=== PATIENT | male | born 1955 | race Caucasian/White ===

== ENCOUNTER 2018-06-13 07:51 | Emergency (ER) | payer BC ==
[2018-06-13 08:17] VITALS: BP 144/77
--- NOTE | 2018-06-13 08:29 | UC ---
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 and NO recent injury of note - History of Current Complaint Chief Complaint: UCLowerExtremity Stated Complaint: LEFT FOOT PAIN Time Seen by Provider: 06/13/18 08:18 Hx Obtained From: Patient, Family/Broadcast Chief Engineer Onset/Duration: Lasting Days Severity Initially: Moderate Severity Currently: Severe Pain Intensity: 9 - Allergies/Home Medications Allergies/Adverse Reactions: Allergies Allergy/AdvReac Type Severity Reaction Status Date / Time No Known Allergies Allergy Verified 06/13/18 08:18 Home Medications: Home Medications Atorvastatin Calcium [Lipitor] 40 mg PO DAILY 06/13/18 [History Confirmed ] Darifenacin (NF) [Enablex (NF)] 15 mg PO DAILY 06/13/18 [History Confirmed 06/13] Mirabegron [Myrbetriq] 25 mg PO DAILY 06/13/18 [History Confirmed 06/13/18] Omeprazole 20 mg PO DAILY 06/13/18 [History Confirmed 06/13/18] Ticagrelor* [Brilinta*] 90 mg PO BID 06/13/18 [History Confirmed 06/13/18] PMH/Surg Hx/FS Hx/Imm Hx - Surgical History Surgical History: Yes Surgery Procedure, Year, and Place: Appy 2004, left eye socket and zygomatic fxs with metal plates 1996. amp left great toe due to crushing injury, heart surgery, 2019 - Family History Known Family History: Positive: None, Unknown Negative: Hypertension, Diabetes - Social History Alcohol Use: Occasionally Substance Use Type: None Smoking Status (MU): Former Smoker Type: Smokeless Tobacco Review of Systems All Other Systems Reviewed And Are Negative: Yes - Comments Additional Review of Systems Comments: Constitutional: Negative Eyes: Negative ENT: Negative Cardiovascular: Negative Respiratory: Negative Gastrointestinal: Negative Genitourinary: Negative Musculoskeletal: left 4th toe pain Skin: Negative Neurological: Negative Psychological: Normal Physical Exam - Summary Physical Exam Summary: Appearance: Positive: No Pain Distress Skin: Positive: Warm Head/Face: Positive: Normal Head/Face Inspection Eyes: Positive: Normal ENT: Positive: Normal ENT inspection Neck: Positive: Supple Respiratory/Lung Sounds: Positive: Clear to Auscultation. Negative: Rales, Rhonchi, Wheezes Cardiovascular: Positive: Normal, RRR, S1, S2 Abdomen Description: Positive: Nontender, Soft Musculoskeletal: Positive: left 4th toe moderate to severe TTP, mild erythema, ROM intact, no open wounds Vital Signs: Initial Vital Signs Temp 36.8 C 06/13/18 08:08 Pulse 62 06/13/18 08:08 Resp 16 06/13/18 08:08 BP 144/77 06/13/18 08:08 Pulse Ox 97 06/13/18 08:08 Lower Extremity Course/Dx - Course Course Of Treatment: left 4th toe pain- ddx include acute gouty flare- check uric acid levels today, start indomethacin 50 TID, if pain still persist f/u with PCP, limit red meat and beer but pt states he probably will not be able to - Differential Dx/Diagnosis Provider Diagnosis: Gout attack Discharge - Sign-Out/Discharge Documenting (check all that apply): Patient Departure All imaging exams completed and their final reports reviewed: Yes - Discharge Plan Condition: Stable Disposition: HOME Referrals: Reina Knutson MD [Primary Care Provider] - - Billing Disposition and Condition Condition: STABLE Disposition: Home
== END 2018-06-13 08:58 | disposition home or self-care (01) ==
LOC: UCCORT 07:51
DX: M10.9 Gout, unspecified (principal); Z87.891 Personal history of nicotine dependence
CPT/HCPCS: 36415; 84550; 99212; G0463

== ENCOUNTER 2018-08-01 10:44 | Emergency (ER) | payer BC ==
[2018-08-01 11:00] VITALS: BP 131/76
--- NOTE | 2018-08-01 11:14 | UC ---
Knee Pain HPI - HPI Summary HPI Summary: Per brick dropper: "Right knee swelling x2 weeks. Hurts to bend. Burning sensation behind the knee occasionally. Denies any known trauma. " -here w/ his . doesnt come to the drs unless he has signifccant issues. On brillinta for CVA, failed plavix. had surgical repair of a "hole in my heart". very active. his reports that he does a lot of "stupid things" like jumping down from the tuck. no giving out. feels like he has to unlock it in the monrings at times. not warm or red. no CP/SOB. no personal or FHx DVT - History of Current Complaint Chief Complaint: UCLowerExtremity Stated Complaint: RT KNEE COMPLAINT Time Seen by Provider: 08/01/18 11:06 Pain Intensity: 8 - Allergies/Home Medications Allergies/Adverse Reactions: Allergies Allergy/AdvReac Type Severity Reaction Status Date / Time No Known Allergies Allergy Verified 08/01/18 10:55 PMH/Surg Hx/FS Hx/Imm Hx Previously Healthy: Yes Cardiovascular History: Other - s/p surgical repair of "hole in heart" - Surgical History Surgical History: Yes Surgery Procedure, Year, and Place: Appy 2004, left eye socket and zygomatic fxs with metal plates 1996. T&A. amp left great toe due to crushing injury, heart surgery, 2018 - Family History Known Family History: Positive: None, Unknown, Other - no blood clots Negative: Hypertension, Diabetes - Social History Alcohol Use: Daily Alcohol Amount: 3 beers/day Substance Use Type: None Smoking Status (MU): Former Smoker Type: eCigarettes Review of Systems All Other Systems Reviewed And Are Negative: Yes Constitutional: Positive: Negative Skin: Positive: Negative Eyes: Positive: Negative ENT: Positive: Negative Respiratory: Positive: Negative Cardiovascular: Positive: Negative Gastrointestinal: Positive: Negative Motor: Positive: Decreased ROM Neurovascular: Positive: Negative Musculoskeletal: Positive: Decreased ROM Neurological: Positive: Negative Psychological: Positive: Negative Is Patient Immunocompromised?: No Physical Exam Triage Information Reviewed: Yes Appearance: Well-Appearing, No Pain Distress, Well-Nourished - very pleasant, signfiiccant amt of history is further detailed by his . Vital Signs: Initial Vital Signs Temp 98.4 F 08/01/18 10:56 Pulse 64 08/01/18 10:56 Resp 15 08/01/18 10:56 BP 131/76 08/01/18 10:56 Pulse Ox 96 08/01/18 10:56 Vital Signs Reviewed: Yes Eye Exam: Normal Respiratory Exam: Normal Respiratory: Positive: Lungs clear, Normal breath sounds, No respiratory distress Cardiovascular Exam: Normal Cardiovascular: Positive: RRR Abdominal Exam: Normal Musculoskeletal: Positive: Other: - right knee w/ geenarlized anterior swelling compared to left. there is right lateral anterior abrasion (from working/ kneeling on cement). no v/v laxity. neg A/P drawer. neg lachmans. strength intact. cool to touch. not tender or significantly swollen or red posterior knee. CR brisk. sensation intact Neurological Exam: Normal Psychological Exam: Normal Skin Exam: Normal Knee Pain Course/Dx - Course Course Of Treatment: right knee xray - neg. -he has seen Dr vásquez, ortho, for several other issues and would like to f/u with him. - Differential Dx/Diagnosis Differential Diagnosis/HQI/PQRI: Fracture (Closed), Sprain, Strain, Tendonitis Provider Diagnosis: Right knee pain Discharge - Sign-Out/Discharge Documenting (check all that apply): Patient Departure All imaging exams completed and their final reports reviewed: Yes - Discharge Plan Condition: Stable Disposition: HOME Patient Education Materials: Knee Pain (ED) Referrals: Reina Knutson MD [Primary Care Provider] - Additional Instructions: Do not take anyd NSAIDs (aleve, ibuprofen, advil etc) for pain. only tylenol b/ c increased bleeding risk with brillinta. Please call Dr Vásquez this week for follow up. If the back of your leg becomes swollen, red or worsening pain, please go to the ER. - Billing Disposition and Condition Condition: STABLE Disposition: Home
== END 2018-08-01 11:53 | disposition home or self-care (01) ==
LOC: UCCORT 10:44
DX: M25.561 Pain in right knee (principal); Z89.412 Acquired absence of left great toe; Z87.891 Personal history of nicotine dependence
CPT/HCPCS: 99211; G0463

== ENCOUNTER 2018-09-26 08:55 | Emergency (ER) | payer BC ==
--- OUTSIDE RECORDS SUMMARY | 2018-09-26 09:03 | XMS REPORT | Continuity of Care Document ---
:1955 External Reference #:[id number] Author Name Reina Knutson MD Address [address] [facility] [place] [address] Care Team Providers Name Role Phone Reina Knutson MD Care Team Information Grant Officer Unavailable Payers Date Identification Numbers Payment Provider Subscriber Effective: 2011 Policy Number: [id number] [facility] West[facility] PayID: [id number] [address] [address] [place] [address] Onset: 2005 [facility] Vasu Weston [address] [address] [place] [address] Problems Active Problems Provider Date Pityriasis versicolor Reina Knutson MD Onset: 01/17/2012 Vitamin D deficiency Reina Knutson MD Onset: 01/17/2012 Bladder muscle dysfunction - overactive Reina Knutson MD Onset: 2010 Impotence of organic origin Reina Knutson MD Onset: 03/23/2010 Benign neoplasm of colon Reina Knutson MD Onset: 09/01/2009 Family history of malignant neoplasm of Reina Knutson MD Onset: 2009 gastrointestinal tract Tobacco user Reina Knutson MD Onset: 03/13/2009 Mixed hyperlipidemia Reina Knutson MD Onset: 03/13/2009 Malignant tumor of prostate Reina Knutson MD Onset: 04/14/2015 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 Cerebrovascular disease Reina Knutson MD Onset: 06/18/2016 Late effects of cerebrovascular disease Reina Knutson MD Onset: 2016 Blurring of visual image Onset: 07/22/2016 Tobacco dependence syndrome Onset: 06/13/2016 Hyperlipidemia Onset: 06/13/2016 Aneurysm of internal carotid artery Onset: 06/13/2016 History of malignant neoplasm of prostate Onset: 06/13/2016 Ischemic stroke Onset: 06/12/2016 History of cerebrovascular accident without Reina Knutson MD Onset: 02/11 residual deficits Aneurysm of other specified arteries Reina Knutson MD Onset: 02/11/2018 Alcohol dependence with other alcohol-induced Reina Knutson MD Onset: disorder Atrioventricular septal defect Reina Knutson MD Onset: 02/11/2018 Coronary atherosclerosis Reina Knutson MD Onset: 09/07/2018 Family History Date Family Member(s) Observation Comments Father due to Cancer () Onset: (age 60 Years) Father Cancer, Colon Onset: (age 70 Years) Mother Stroke Mother Carotid Artery Disease stents Mother Hypertension Mother Hypercholesterolemia First Son No Current Problems Second Son No Current Problems First Daughter No Current Problems First Brother Hypertension First Brother Hypercholesterolemia First Brother Colon Polyps First Sister No Current Problems Second Sister No Current Problems Social History Type Date Description Comments Sex Unknown Marital Status Lives With Spouse Occupation Currently Working working, construction, [employer] , does pipe lines Smokeless Tobacco Current Smokeless or more times per day, Tobacco User, Uses 10 vaping Times Daily ETOH Use Currently consumes 3 -4 beers 3-4 days alcohol per week Recreational Drug Use Denies Drug Use Tobacco Use Start: Unknown Patient is a former quit 06/12/16 , 1 ppd, End: smoker started in the teens Document: 07/19/16 - Followup: CPX Male 07/19/16 eligible, declines screening [facility] [place], willing to do screening LM Tobacco Use Start: Unknown Patient vapes Tobacco Use Start: Unknown Patient is a current as vaping mult times smoker, smokes every per day day Smoking Status Reviewed: 09/07/18 Patient is a former quit 06/12/16 , 1 ppd, smoker started in the teens Document: 07/19/16 - Followup: CPX Male 07/19/16 eligible, declines screening [facility] [place] willing to do screening LM Exercise Type/Frequency Exercises regularly walking, yard chores snow blow, shovel, mow lawn; 04/11/14 counselled 150min per week 10k steps per day Allergies, Adverse Reactions, Alerts Description No Known Drug Allergies Medications Active Medications SIG Qnty Indications Ordering Date Provider Ketoconazole apply shampoo to 120ml B36.0 Zenia, 09/07/2018 2% Shampoo all of body rash, MD Reina leave on for 5 min and then rinse off. repeat treatment in 1 week. Vitamin D 2 tabs by mouth E55.9 Zenia, 03/23/2018 (Cholecalciferol) every day with a MD Reina meal with meat 1000Unit Tablets /fat Atorvastatin Calcium take one tablet by 30tabs E78.2 Zenia, 2016 mouth every day MD Reina 40mg Tablets I63.30 Brilinta 1 by mouth twice a day by Z79.01 Unknown 05/20/[address] Cheema I67.9 Z86.73 Cialis 1/2 -1 q36h as N52.9 Tanner Avila 06/19/2015 20mg Tablets needed anticipated sexual activity Myrbetriq 1 by mouth every day N32.81 Unknown 25mg Tablets ER 24HR Omeprazole 1 by mouth every day 30caps I63.30 Reina Knutson MD 20mg 30min before a meal Capsules Z86.73 R12 Darifenacin Hydrobromide ER Take 15 mg by mouth N32.81 Evert Ozuna 15mg Tablets daily ER 24HR C61 Aspirin Adult Low 1 by mouth daily with E78.2 Reina Knutson MD Strength food 81mg Tablets I63.30 History Medications Fluoxetine HCL 1 by mouth 30caps I63.30 Reina Knutson, 01/24/2017 - (PMDD) every day 03/18/2017 20mg Capsules Nicoderm CQ on in morning, 28units J44.9 Reina Knutson, 07/19/2016 - off at night, 08/16/2016 7mg/24HR Patches don't smoke 24HR with this patch on F17.211 Fluoxetine HCL 1 by mouth 30caps I63.30 Reina Knutson, 06/13/2016 - (PMDD) every day 07/22/2016 20mg Capsules Aspirin Low Dose Take 1 tablet 30tabs Z79.01 Unknown 06/13/2016 - by mouth daily 07/24/2016 81mg Tablets I63.30 Nicoderm CQ apply every day 28units J44.9 Reina Knutson, 06/12/2016 - on arising, 07/19/2016 14mg/24HR Patches remove at night, 24HR no smoking with patch on F17.211 Chantix 1 by mouth 60tabs F17.210 Reina Knutson, 05/12/2015 - 1mg Tablets twice a day 06/18/2016 Chantix Starting as directed, 1tabs F17.210 Reina Knutson, 04/14/2015 - Month Scott call with 05/12/2015 0.5mg X 11 update 1 week & 1 mg X 42 Tablets before running out, start now and quit in 1 week Atorvastatin Calcium 1 by mouth 30tabs E78.2 Reina Knutson, 04/14/2015 - every day 06/18/2016 10mg Tablets Cephalexin 1 by mouth 14tabs L03.116 Reina Knutson, 02/20/2015 - 500mg twice a day 02/27/2015 Tablets Viagra take 1 tablet 10tabs N52.9 Tanner Avila 11/17/2013 - 100mg Tablets by mouth if 06/18/2016 needed Aspirin Adult Low 1 by mouth E78.2 Reina Knutson, 02/28/2012 - Strength daily with food 07/23/2016 81mg Tablets I63.30 Vitamin D 1 po daily E55.9 Reina Knutson, 03/27/2010 - (Cholecalciferol) with evening 08/10/2017 1000Unit meal Tablets Enablex 1 PO qd 30tabs 788.30 Tanner Savage, 04/18/2006 - 7.5mg Tablets ER 24HR 02/20/2015 596.51 Darifenacin Hydrobromide 1 by mouth every day Unknown - 07/23 ER 15mg Tablets ER 24HR Adcirca Take 20 mg by mouth Unknown - 12/15/2016 20mg Tablets daily as needed for Erectile Dysfunction Omeprazole Magnesium Take 20 mg by mouth Unknown - 12/15/2016 20.6(20Base) daily mg Capsules DR Lugo Transdermal Place 1 patch onto the Unknown - 2016 System Step 2 skin every 24 14mg/24HR Patches (twenty-four) hours 24HR Immunizations CPT Code Status Date Vaccine Reaction Lot # 11176 Given 07/26/2017 Tdap (Adacel) Ages 7 And Above GIVEN AT PHARMACY Only 77115 Given 02/20/2015 Tetanus And Diptheria Toxoids [id number] For Adult Use-preservative free 62300 Given 01/17/2012 Pneumococcal 23 Immunization Adult Or Immunosuppressed Patient 41034 Given 04/01/2005 Tdap (Adacel) Ages 7 And Above Only [id number] Refused 02/11/2018 Flu Vaccine NOS 79040 Refused 02/11/2018 Shingrix (Shingles) Zoster Vaccine HZV, Recombinant , Subunit, Adj 33583 Refused 03/18/2017 Influenza Virus Vaccine,Quadrivalent,Split,Preserv Free, 0.5mL,Im [address] Refused 04/14/2015 Influenza Virus Vaccine,Quadrivalent,Split,Preserv Free, 0.5mL,Im [address] Refused 02/20/2015 Influenza Virus Vaccine,Quadrivalent,Split,Preserv Free, 0.5mL,[place] [address] Refused 04/11/2014 Zoster (Zostavax) 68900 Refused 04/11/2014 Influenza Virus Vaccine,Quadrivalent,Split,Preserv Free, 0.5mL,Im [address] Refused 04/11/2014 Prevnar 13 Pneumococal Conjugate Vaccine Vital Signs Date Vital Result Comment 09/07/2018 1:26pm Weight 146.00 lb Heart Rate 76 /min BP Systolic 128 mmHg BP Diastolic 64 mmHg Respiratory Rate 14 /min Height 67 inches 5'7" BMI (Body Mass Index) 22.9 kg/m2 02/11/2018 8:35am Weight 158.00 lb With Boots Heart Rate 62 /min BP Systolic 130 mmHg BP Diastolic 80 mmHg Respiratory Rate 16 /min Height 67 inches 5'7" O2 % BldC Oximetry 94 % Ra BMI (Body Mass Index) 24.7 kg/m2 08/11/2017 3:44pm Body Temperature 98.1 F Weight 155.00 lb Heart Rate 69 /min BP Systolic 138 mmHg BP Diastolic 74 mmHg Respiratory Rate 16 /min Height 67 inches 5'7" O2 % BldC Oximetry 95 % ra BMI (Body Mass Index) 24.3 kg/m2 03/18/2017 8:48am Weight 150.00 lb Heart Rate 68 /min BP Systolic 138 mmHg BP Diastolic 80 mmHg Respiratory Rate 18 /min Height 67.5 inches 5'7.50" 03/18/17 BMI (Body Mass Index) 23.1 kg/m2 12/16/2016 2:36pm Weight 140.00 lb Heart Rate 78 /min BP Systolic 140 mmHg BP Diastolic 82 mmHg Respiratory Rate 16 /min Height 67.5 inches 5'7.50" 07/03 BMI (Body Mass Index) 21.6 kg/m2 07/24/2016 11:43am Body Temperature 97.6 F Weight 146.12 lb Heart Rate 57 /min BP Systolic 128 mmHg BP Diastolic 78 mmHg Respiratory Rate 16 /min Height 67.5 inches 5'7.50" 07/03 O2 % BldC Oximetry 96 % Room air BMI (Body Mass Index) 22.5 kg/m2 07/23/2016 3:55pm Body Temperature 98.1 F Heart Rate 69 /min BP Systolic 112 mmHg BP Diastolic 78 mmHg Respiratory Rate 17 /min 07/22/2016 11:30am Height 67.01 inches 5'7.01" 07/22/2016 12:40pm BMI (Body Mass Index) 22.82 kg/m2 07/19/2016 2:12pm Weight 149.00 lb Heart Rate 74 /min BP Systolic Sitting 134 mmHg BP Diastolic Sitting 78 mmHg Respiratory Rate 16 /min Height 67.5 inches 5'7.50" 07/03 BMI (Body Mass Index) 23.0 kg/m2 06/18/2016 3:14pm Weight 144.06 lb Heart Rate 68 /min BP Systolic 130 mmHg BP Diastolic 82 mmHg Respiratory Rate 18 /min Height 67.5 inches 5'7.50" 07/03 BMI (Body Mass Index) 22.2 kg/m2 05/12/2015 10:28am Weight 151.00 lb Heart Rate 80 /min BP Systolic 128 mmHg LEFT Reg BP Diastolic 88 mmHg LEFT Reg Respiratory Rate 18 /min Height 67 inches 5'7" 05/02 BMI (Body Mass Index) 23.6 kg/m2 04/14/2015 9:31am Weight 142.00 lb Heart Rate 72 /min BP Systolic 120 mmHg BP Diastolic 80 mmHg Respiratory Rate 18 /min Height 67 inches 5'7" BMI (Body Mass Index) 22.2 kg/m2 02/20/2015 2:30pm Weight 140.00 lb Heart Rate 74 /min BP Systolic 130 mmHg BP Diastolic 80 mmHg Respiratory Rate 18 /min Height 67 inches 5'7" BMI (Body Mass Index) 21.9 kg/m2 04/11/2014 9:12am Weight 144.00 lb Heart Rate 74 /min BP Systolic 122 mmHg BP Diastolic 80 mmHg Respiratory Rate 18 /min Height 67 inches 5'7" BMI (Body Mass Index) 22.6 kg/m2 02/28/2012 8:53am Weight 145.00 lb Heart Rate 76 /min BP Systolic 120 mmHg BP Diastolic 70 mmHg Respiratory Rate 16 /min Height 66.75 inches 5'6.75" 01/17/2012 1:22pm Weight 144.00 lb Heart Rate 72 /min BP Systolic 134 mmHg BP Diastolic 78 mmHg Respiratory Rate 18 /min Height 67.25 inches 5'7.25" 01/17/12 03/23/2010 1:24pm Weight 146.00 lb Heart Rate 92 /min BP Systolic 110 mmHg R/LG BP Diastolic 60 mmHg R/LG Respiratory Rate 17 /min Height 68.5 inches 5'8.50" 09/01/2009 3:38pm BP Systolic 120 mmHg RIGHT BP Diastolic 70 mmHg RIGHT 09/01/2009 3:38pm Body Temperature 72.0 F Weight 138.00 lb BP Systolic 118 mmHg LEFT BP Diastolic 68 mmHg LEFT 03/13/2009 9:22am BP Systolic 140 mmHg BP Diastolic 80 mmHg 03/13/2009 9:22am Weight 145.00 lb Heart Rate 72 /min BP Systolic 140 mmHg BP Diastolic 80 mmHg Respiratory Rate 15 /min 04/18/2006 4:34pm Weight 146.00 lb Heart Rate 68 /min BP Systolic 130 mmHg BP Diastolic 80 mmHg Respiratory Rate 20 /min Height 68 inches 5'8" 08/21/2005 3:22pm Weight 138.38 lb Heart Rate 68 /min BP Systolic 120 mmHg BP Diastolic 82 mmHg Respiratory Rate 16 /min Height 68 inches 5'8" 08/08/2005 11:28am Heart Rate 72 /min BP Systolic 118 mmHg BP Diastolic 80 mmHg Respiratory Rate 18 /min Height 68 inches 5'8" 04/01/2005 8:06am Weight 145.00 lb Heart Rate 74 /min BP Systolic 142 mmHg BP Diastolic 84 mmHg Respiratory Rate 16 /min Height 68 inches 5'8" 03/01/2005 1:04pm Weight 141.00 lb Heart Rate 78 /min BP Systolic 134 mmHg BP Diastolic 80 mmHg Respiratory Rate 16 /min Results Test Date Facility Test Result H/L Range Note Lipid Panel-[facility]cmg 09/05/2018 [facility] Cholesterol 133 mg /dL <200 1, 2 (315)- - Triglycerides 55 mg/dL <150 3 HDL Cholesterol 72 mg/dL >40 4 LDL-Cholesterol 50 mg/dL < 100 5 Laboratory test finding 09/05/2018 [facility] CK 110 U/L N 39-308 (315)- - Comprehensive Metabolic 09/05/2018 [facility] Glucose 90 mg/dL N 74-106 Panel (315)- - BUN 9 mg/dL N 7-18 Creatinine 0.9 mg/dL N 0.6-1.3 Glom Filtration Rate, Estimate >60 mL/min >60 If >60 mL/min >60 6 BUN/Creat 10.0 ratio Sodium 141 mmol/L N 136-145 Potassium 4.2 mmol/L N 3.5-5.1 Chloride 107 mmol/L N 98-107 Carbon Dioxide 28 mmol/L N 21-32 Anion Gap 6 mEq/L Low 8-16 Calcium 9.0 mg/dL N 8.5-10.1 Total Protein 7.8 g/dL N 6.4-8.2 Albumin 3.9 g/dL N 3.4-5.0 Globulin 3.9 g/dL N 1.9-4.3 Alb/Glob 1.0 ratio Bilirubin,Total 0.6 mg/dL N 0.2-1.0 Sgot/Ast 18 U/L N 15-37 SGPT/Alt 21 U/L N 12-78 Alkaline Phosphatase 83 U/L N 45-117 CBS W/Automated Diff 09/05/2018 [facility] White Blood 3.9 K/uL N 3.4-10.5 (315)- - Count Red Blood Count 4.40 M/uL N 4.20-5.80 Hemoglobin 14.2 gm/dL N 12.8-17.0 Hematocrit 41.3 % N 38.0-48.0 Mean Cell Volume 93.9 fl N 80.0-96.0 Mean Corpuscular HGB 32.3 pg N 27.0-33.0 Mean Corpuscular HGB Conc 34.4 g/dL N 31.7-36.0 Platelet Count 287 K/uL N 155-360 Red Cell Distri Width SD 44.1 fl N 36-51 Red Cell Distri Width %CV 12.8 % N 11.6-15.8 Mean Platelet Volume 9.3 fl N 6.6-10.6 Neut% 57.9 % N 33.0-73.0 Lymph % 28.7 % N 20.0-42.0 Hays % 9.5 % N 0.0-10.0 Eo% 3.1 % N 0.0-6.6 Bas% 0.8 % N 0.0-1.1 Immature Grans 0.0 % N 0.0-5.0 NRBC % 0.0 /100WBC < 10/ 100 WBC Neut# 2.26 K/uL N 1.8-7.0 Lymph # 1.12 K/uL N 1.0-4.0 Hays # 0.37 K/uL N 0.0-0.8 Eos # 0.12 K/uL N 0.0-0.5 Baso # 0.03 K/uL N 0.0-0.1 Immature Grans Absolute 0.00 K/uL NRBC # 0.00 K/uL Laboratory test 09/05/2018 [facility] Vitamin <pending> finding (315)- - D,25-Hydroxy CBS W/Automated 01/31/2018 [facility] White Blood Count 4.7 K/uL N 3.4-10 7 Diff (315)- - .5 Red Blood Count 4.61 M/uL N 4.20-5.80 Hemoglobin 14.6 gm/dL N 12.8-17.0 Hematocrit 42.6 % N 38.0-48.0 Mean Cell Volume 92.4 fl N 80.0-96.0 Mean Corpuscular HGB 31.7 pg N 27.0-33.0 Mean Corpuscular HGB Conc 34.3 g/dL N 31.7-36.0 Platelet Count 272 K/uL N 155-360 Red Cell Distri Width SD 41.3 fl N 36-51 Red Cell Distri Width %CV 12.6 % N 11.6-15.8 Mean Platelet Volume 9.9 fL N 6.6-10.6 Neut% 54.8 % N 33.0-73.0 Lymph % 31.9 % N 20.0-42.0 Hays % 8.9 % N 0.0-10.0 Eo% 4.0 % N 0.0-6.6 Bas% 0.4 % N 0.0-1.1 Neut# 2.59 K/uL N 1.8-7.0 Lymph # 1.51 K/uL N 1.0-4.0 Hays # 0.42 K/uL N 0.0-0.8 Eos # 0.19 K/uL N 0.0-0.5 Baso # 0.02 K/uL N 0.0-0.1 Comprehensive Metabolic 01/31/2018 [facility] Glucose 83 mg/dL N 74-106 Panel (315)- - BUN 10 mg/dL N 7-18 Creatinine 0.9 mg/dL N 0.6-1.3 Glom Filtration Rate, Estimate >60 mL/min >60 If >60 mL/min >60 8 BUN/Creat 11.1 ratio Sodium 141 mmol/L N 136-145 Potassium 4.0 mmol/L N 3.5-5.1 Chloride 106 mmol/L N 98-107 Carbon Dioxide 29 mmol/L N 21-32 Anion Gap 6 mEq/L Low 8-16 Calcium 8.6 mg/dL N 8.5-10.1 Total Protein 7.5 g/dL N 6.4-8.2 Albumin 3.9 g/dL N 3.4-5.0 Globulin 3.6 g/dL N 1.9-4.3 Alb/Glob 1.1 ratio Bilirubin,Total 0.5 mg/dL N 0.2-1.0 Sgot/Ast 24 U/L N 15-37 SGPT/Alt 33 U/L N 12-78 Alkaline Phosphatase 72 U/L N 45-117 Laboratory test 01/31/2018 [facility] CK 69 U/L N 39- 308 finding (315)- [facility] Cholesterol 145 mg /dL <200 9 (315)- - Triglycerides 63 mg/dL <150 10 HDL Cholesterol 56 mg/dL >40 11 LDL-Cholesterol 76 mg/dL < 100 12 [facility] Glucose 105 mg/dL N 74-106 13 (315)- - BUN 10 mg/dL N 7-18 Creatinine 0.8 mg/dL N 0.6-1.3 Glom Filtration Rate, Estimate >60 mL/min >60 If >60 mL/min >60 14 BUN/Creat 12.5 ratio Sodium 143 mmol/L N 136-145 Potassium 3.8 mmol/L N 3.5-5.1 Chloride 111 mmol/L High 98-107 Carbon Dioxide 23 mmol/L N 21-32 Anion Gap 9 mEq/L N 8-16 Calcium 8.5 mg/dL N 8.5-10.1 Total Protein 7.2 g/dL N 6.4-8.2 Albumin 3.9 g/dL N 3.4-5.0 Globulin 3.3 g/dL N 1.9-4.3 Alb/Glob 1.2 ratio Bilirubin,Total 0.5 mg/dL N 0.2-1.0 Sgot/Ast 23 U/L N 15-37 SGPT/Alt 32 U/L N 12-78 Alkaline Phosphatase 74 U/L N 45-117 CBC With Auto 08/02/2017 [facility] White Blood 4.8 K/uL N 3.4-10.5 Diff (315)- - Count Red Blood Count 4.58 M/uL N 4.20-5.80 Hemoglobin 14.6 gm/dL N 12.8-17.0 Hematocrit 42.1 % N 38.0-48.0 Mean Cell Volume 91.9 fl N 80.0-96.0 Mean Corpuscular HGB 31.9 pg N 27.0-33.0 Mean Corpuscular HGB Conc 34.7 g/dL N 31.7-36.0 Platelet Count 275 K/uL N 155-360 Red Cell Distri Width SD 42.6 fl N 36-51 Red Cell Distri Width %CV 13.0 % N 11.6-15.8 Mean Platelet Volume 9.5 fL N 6.6-10.6 Neut% 61.5 % N 33.0-73.0 Lymph % 25.7 % N 20.0-42.0 Hays % 9.3 % N 0.0-10.0 Eo% 3.1 % N 0.0-6.6 Bas% 0.4 % N 0.0-1.1 Neut# 2.97 K/uL N 1.8-7.0 Lymph # 1.24 K/uL N 1.0-4.0 Hays # 0.45 K/uL N 0.0-0.8 Eos # 0.15 K/uL N 0.0-0.5 Baso # 0.02 K/uL N 0.0-0.1 Lipid Panel-[facility] 08/02/2017 [facility] Cholesterol 120 mg /dL <200 15 (315)- - Triglycerides 104 mg/dL <150 16 HDL Cholesterol 46 mg/dL >40 17 LDL-Cholesterol 53 mg/dL < 100 18 Laboratory test 08/02/2017 [facility] CK 128 U/L N 39- 308 finding (315)- - CBS W/Automated 07/30/2017 [facility] White Blood 5.6 K/ uL N 3.4-10.5 19 Diff (315)- - Count Red Blood Count 4.45 M/uL N 4.20-5.80 Hemoglobin 14.5 gm/dL N 12.8-17.0 Hematocrit 41.5 % N 38.0-48.0 Mean Cell Volume 93.3 fl N 80.0-96.0 Mean Corpuscular HGB 32.6 pg N 27.0-33.0 Mean Corpuscular HGB Conc 34.9 g/dL N 31.7-36.0 Platelet Count 273 K/uL N 155-360 Red Cell Distri Width SD 42.3 fl N 36-51 Red Cell Distri Width %CV 12.8 % N 11.6-15.8 Mean Platelet Volume 9.2 fL N 6.6-10.6 Neut% 58.6 % N 33.0-73.0 Lymph % 28.6 % N 20.0-42.0 Hays % 9.0 % N 0.0-10.0 Eo% 3.6 % N 0.0-6.6 Bas% 0.2 % N 0.0-1.1 Neut# 3.26 K/uL N 1.8-7.0 Lymph # 1.59 K/uL N 1.0-4.0 Hays # 0.50 K/uL N 0.0-0.8 Eos # 0.20 K/uL N 0.0-0.5 Baso # 0.01 K/uL N 0.0-0.1 Protime 07/30/2017 [facility] Protime 12.6 seconds N 12.0-14.4 (315)- - Inr 0.9 N 0.9-1.1 20 Laboratory test 07/30/2017 [facility] Act Partial 27.7 seconds N 23.4-35.0 21 finding (315)- - Thrombo Time Comprehensive 07/30/2017 [facility] Glucose 101 mg/dL N 74-106 Metabolic Panel (315)- - BUN 11 mg/dL N 7-18 Creatinine 0.8 mg/dL N 0.6-1.3 Glom Filtration Rate, Estimate >60 mL/min >60 If >60 mL/min >60 22 BUN/Creat 13.7 ratio Sodium 142 mmol/L N 136-145 Potassium 4.1 mmol/L N 3.5-5.1 Chloride 111 mmol/L High 98-107 Carbon Dioxide 25 mmol/L N 21-32 Anion Gap 6 mEq/L Low 8-16 Calcium 8.3 mg/dL Low 8.5-10.1 Total Protein 7.2 g/dL N 6.4-8.2 Albumin 3.9 g/dL N 3.4-5.0 Globulin 3.3 g/dL N 1.9-4.3 Alb/Glob 1.2 ratio Bilirubin,Total 0.4 mg/dL N 0.2-1.0 Sgot/Ast 23 U/L N 15-37 SGPT/Alt 35 U/L N 12-78 Alkaline Phosphatase 73 U/L N 45-117 Laboratory test finding 07/30/2017 [facility] CK 93 U/L N 39-308 (315)- - Troponin-I < 0.015 ng/mL 23 Comprehensive Met Panel-[facility] 03/13/2017 [facility] Sodium 139 mmol/L 135- 146 24, 25 Potassium 4.2 mmol/L 3.5-5.2 Chloride# 103 mmol/L 97-110 26 Carbon Dioxide 28 mmol/L 24-34 Glucose 93 mg/dL 70-105 BUN 14 mg/dL 6-26 Creatinine 0.8 mg/dL 0.5-1.4 Calcium 9.6 mg/dL 8.5-10.2 Total Protein 6.9 g/dL 6.0-8.0 Albumin 4.5 g/dL 3.6-4.9 Globulin 2.4 g/dL 2.0-3.5 A/G Ratio 1.9 Ratio 1.0-2.2 Total Bilirubin 0.6 mg/dL 0.1-1.3 Alkaline Phosphatase 57 U/L 24-140 Alt 29 U/L 3-42 Ast 24 U/L 8-42 Krysta Egfr >60 >60 27 Non Krysta Egfr >60 >60 28 Anion Gap 8 mmol/L 7-16 29 CBC With Auto Diff 03/13/2017 [facility] WBC 4.8 K/uL 4.1-11.0 RBC 4.59 M/uL Low 4.60-6.10 Hemoglobin 14.6 gm/dL 13.5-18.0 Hematocrit 42.8 % 41.0-53.0 MCV 93.3 fL 80.0-97.0 MCH 31.8 pg 27.0-32.0 MCHC 34.0 g/dL 32.0-36.0 RDW 12.8 % 11.5-14.5 PLT Count 271 K/ul 140-400 MPV 7.8 FL 7.1-10.7 Neutrophil 54.8 % 35.0-75.0 Lymphocyte 30.2 % 16.0-52.0 Monocyte 9.1 % 2.0-10.0 Eosinophil 5.5 % High 0.0-5.0 Basophil 0.4 % 0.0-4.0 Abs Neutrophils 2.6 K/uL 2.1-8.0 Abs Lymphocytes 1.4 K/uL 0.8-5.5 Abs Monocytes 0.4 K/uL 0.1-1.0 Abs Eosinophils 0.3 K/uL 0.0-0.5 Abs Basophils 0.0 K/uL 0.0-0.3 Lipid 03/13/2017 [facility] Cholesterol 149 mg/dL 50-199 Triglycerides 70 mg/dL 30-200 HDL 55 mg/dL 29-71 30 Chol/ HDL Ratio 2.7 ratio Low 4.0-6.7 VLDL 14 mg/dL 2-29 LDL (Calc) 80 mg/dL 20-99 31 Laboratory test finding 03/13/2017 [facility] 52 U/L 12-199 Hepatitis C Virus Antibody NON REACTIVE S/CORatio(Arvind Non Reactive 32 CBC With Auto 10/19/2016 [facility] White Blood 4.7 K/uL N 3.4-10.5 33 Diff (315)- - Count Red Blood Count 4.35 M/uL N 4.20-5.80 Hemoglobin 14.2 gm/dL N 12.8-17.0 Hematocrit 41.3 % N 38.0-48.0 Mean Cell Volume 94.9 fl N 80.0-96.0 Mean Corpuscular HGB 32.6 pg N 27.0-33.0 Mean Corpuscular HGB Conc 34.4 g/dL N 31.7-36.0 Platelet Count 265 K/uL N 150-400 Red Cell Distri Width SD 44.5 fl N 36-51 Red Cell Distri Width %CV 13.3 % N 11.6-15.8 Mean Platelet Volume 9.3 fL N 6.6-10.6 Neut% 55.5 % N 33.0-73.0 Lymph % 32.8 % N 20.0-42.0 Hays % 8.3 % N 0.0-10.0 Eo% 3.2 % N 0.0-6.6 Bas% 0.2 % N 0.0-1.1 Neut# 2.61 K/uL N 1.8-7.0 Lymph # 1.54 K/uL N 1.0-4.0 Hays # 0.39 K/uL N 0.0-0.8 Eos # 0.15 K/uL N 0.0-0.5 Baso # 0.01 K/uL N 0.0-0.1 Laboratory test 10/19/2016 [facility] CK 90 U/L N 39- 308 finding (315)- - Lipid Panel 10/19/2016 [facility] Cholesterol 109 mg/dL <200 34 (315)- - Triglycerides 79 mg/dL <150 35 HDL Cholesterol 54 mg/dL >40 36 LDL-Cholesterol 39 mg/dL < 100 37 CMP, Comp Metabolic 10/19/2016 [facility] Glucose 87 mg/ dL N 74-106 Panel (315)- - BUN 12 mg/dL N 7-18 Creatinine 0.8 mg/dL N 0.6-1.3 Glom Filtration Rate, Estimate >60 mL/min >60 If >60 mL/min >60 38 BUN/Creat 15.0 ratio Sodium 144 mmol/L N 136-145 Potassium 4.1 mmol/L N 3.5-5.1 Chloride 110 mmol/L High 98-107 Carbon Dioxide 29 mmol/L N 21-32 Anion Gap 5 mEq/L Low 8-16 Calcium 8.8 mg/dL N 8.5-10.1 Total Protein 7.1 g/dL N 6.4-8.2 Albumin 3.7 g/dL N 3.4-5.0 Globulin 3.4 g/dL N 1.9-4.3 Alb/Glob 1.1 ratio Bilirubin,Total 0.7 mg/dL N 0.2-1.0 Sgot/Ast 18 U/L N 15-37 SGPT/Alt 24 U/L N 12-78 Alkaline Phosphatase 74 U/L N 45-117 CBC and Differential 07/23/2016 N2N/CCD Import Abs Basophil 0.03 10*3/uL 0 - 0.2 Abs Eosinophil 0.25 10*3/uL 0 - 0.5 Abs Lymphocyte 1.63 10*3/uL 1.2 - 4.0 Abs Monocyte 0.47 10*3/uL 0 - 0.8 Abs Neutrophil 3.21 10*3/uL 1.8 - 7.0 Basophil 1 % 0 - 2 Differential Type Automated Diff Eosinophil 4 % 0 - 5 Hematocrit 40.3 % Low 41 - 53 Hemoglobin 14.0 g/dL 13.5 - 18 Lymphocyte 29 % 13 - 52 Mean Cell Hemoglobin 31.6 pg 27 - 33 Mean Cell Hgb Conc 34.8 g/dL 32.0 - 36.0 Mean Cell Volume 90.9 fL 80 - 96 Monocyte 8 % 0 - 11 Neutrophil 58 % 33 - 73 Nucleated Red Blood Cells 0 /100{WBCs} 0 - 0 Platelet Count 231 10*3/uL 150 - 400 Red Blood Cell 4.43 10*6/uL Low 4.6 - 6.1 Red Cell Dist Width 12.3 % 11.5 - 14.5 White Blood Cell 5.6 10*3/uL 4 - 10 Basic Metabolic Panel 07/23/2016 N2N/CCD Import Anion Gap 13 mmol/L 8 - 15 BUN/Cre Ratio 19 1 Bicarbonate 24 mmol/L 22 - 29 Blood Urea Nitrogen 13 mg/dL 8 - 23 Calcium 8.8 mg/dL 8.8 - 10.2 Chloride 103 mmol/L 96 - 108 Creatinine 0.7 mg/dL 0.5 - 1.2 GFR 2008 CKD-Epi >90 >60 mL/min/1.73m2 GFR Non 2008 CDK-Epi >90 >60 mL/min/1.73m2 Glucose 93 mg/dL 65 - 110 Osmolality, Eloy 290 mosm/kg 275 - 300 Potassium 4.1 mmol/L 3.3 - 5.1 Sodium 140 mmol/L 133 - 145 Verifynow Aspirin 07/23/2016 N2N/CCD Import VerifyNow 594 Aru High <550 Aspirin Verifynow P2y12 07/23/2016 N2N/CCD Import [facility] P2y12 230 Pru High < 208 () Laboratory test 07/22/2016 [place] [facility] CK 87 U/L N 39- 308 39 finding (315)- - Troponin-I < 0.015 ng/mL 40 Comprehensive Metabolic 07/22/2016 [facility] Glucose 91 mg/dL N 74-106 Panel (315)- - BUN 13 mg/dL N 7-18 Creatinine 0.8 mg/dL N 0.6-1.3 Glom Filtration Rate, Estimate >60 mL/min >60 If >60 mL/min >60 41 BUN/Creat 16.2 ratio Sodium 140 mmol/L N 136-145 Potassium 4.2 mmol/L N 3.5-5.1 Chloride 106 mmol/L N 98-107 Carbon Dioxide 28 mmol/L N 21-32 Anion Gap 6 mEq/L Low 8-16 Calcium 9.1 mg/dL N 8.5-10.1 Total Protein 7.4 g/dL N 6.4-8.2 Albumin 4.0 g/dL N 3.4-5.0 Globulin 3.4 g/dL N 1.9-4.3 Alb/Glob 1.2 ratio Bilirubin,Total 0.6 mg/dL N 0.2-1.0 Sgot/Ast 28 U/L N 15-37 SGPT/Alt 46 U/L N 12-78 Alkaline Phosphatase 81 U/L N 45-117 Laboratory test 07/22/2016 [facility] Act Partial 27.7 seconds N 23.4-35.0 42 finding (315)- - Thrombo Time Protime 07/22/2016 [facility] Protime 12.7 seconds N 12.0-14.4 (315)- - Inr 1.0 N 0.9-1.1 43 CBS W/Automated Diff 07/22/2016 [facility] White Blood 5.4 K/uL N 3.4-10.5 (315)- - Count Red Blood Count 4.42 M/uL N 4.20-5.80 Hemoglobin 14.2 gm/dL N 12.8-17.0 Hematocrit 40.5 % N 38.0-48.0 Mean Cell Volume 91.6 fl N 80.0-96.0 Mean Corpuscular HGB 32.1 pg N 27.0-33.0 Mean Corpuscular HGB Conc 35.1 g/dL N 31.7-36.0 Platelet Count 241 K/uL N 150-400 Red Cell Distri Width SD 40.0 fl N 36-51 Red Cell Distri Width %CV 12.1 % N 11.6-15.8 Mean Platelet Volume 9.4 fL N 6.6-10.6 Neut% 58.7 % N 33.0-73.0 Lymph % 25.1 % N 20.0-42.0 [place] % 10.8 % High 0.0-10.0 Eo% 5.2 % N 0.0-6.6 Bas% 0.2 % N 0.0-1.1 Neut# 3.15 K/uL N 1.8-7.0 Lymph # 1.35 K/uL N 1.0-4.0 [place] # 0.58 K/uL N 0.0-0.8 Eos # 0.28 K/uL N 0.0-0.5 Baso # 0.01 K/uL N 0.0-0.1 Poct i-Stat VBG Lactic 07/22/2016 N2N/CCD Import i-Stat Venous Base 4 mmol/ L Acid Excess i-Stat Venous Lactic Acid 0.9 mmol/L 0.5 - 2.2 i-Stat Venous Pco2 46 mmHg High 40 - 45 i-Stat Venous Po2 42 mmHg i-Stat Venous So2 77 % 60 - 85 i-Stat Venous Total Co2 30 mmol/L i-Stat Venous pH 7.41 1 7.36 - 7.41 Poct i-Stat Chem 8 07/22/2016 N2N/CCD Import i-Stat Anion Gap 9 mmol/L 8 - 15 i-Stat BUN 10 mg/dL 8 - 23 i-Stat Chloride 101 mmol/L 96 - 108 i-Stat Creatinine 0.7 mg/dL 0.5 - 1.2 i-Stat Glucose 94 mg/dL 65 - 110 i-Stat Hematocrit 40 % Low 41 - 53 i-Stat Hemoglobin 13.6 g/dL 13.5 - 18.0 i-Stat Ionized Calcium 1.27 mmol/L 1.13 - 1.32 i-Stat Potassium 3.9 mmol/L 3.3 - 5.1 i-Stat Sodium 138 mmol/L 133 - 145 i-Stat Tco2 28 mmol/L 22 - 29 Poct i-Stat 07/22/2016 N2N/CCD Import i-Stat Troponin I 0.00 ng/mL 0.00 - 0.08 Troponin TSH 07/22/2016 N2N/CCD Import TSH 1.430 0.270 - u[IU]/mL 4.200 Protime-Inr 07/22/2016 N2N/CCD Import Int'l Normalized 1.04 1 Ratio PT Patient 13.6 s 12.5 - 14.9 Partial 07/22/2016 N2N/CCD Import PTT Patient (Pat) 30.0 s 24.0 - Thromboplastin Time 34.0 (PTT) Lipid panel 07/22/2016 N2N/CCD Import Cholesterol 127 mg/dL <200 HDL Cholesterol 65 mg/dL >40 LDL Cholesterol 51 mg/dL <100 Non HDL Cholesterol 62 mg/dL <130 Triglyceride 56 mg/dL <200 VLDL Cholesterol 11 mg/dL Low 16 - 42 Hepatic Function Panel 07/22/2016 N2N/CCD Import Albumin 4.4 g/dL 3.4 - 4.8 Alkaline Phosphatase 65 U/L 40 - 129 Alt/SGP 30 U/L <41 Ast/Sgo 26 U/L <38 Bilirubin, Direct 0.2 mg/dL 0 - 0.3 Bilirubin, Total 0.5 mg/dL 0.2 - 1.0 Total Protein 6.8 g/dL 6.4 - 8.3 Hemoglobin A1c 07/22/2016 N2N/[employer] Import Estimated Avg Glucose 120 mg/dL <126 Hemoglobin A1c 5.8 % 4.0 - 6.0 Fibrinogen Level 07/22/2016N/[employer] Import Fibrinogen 246 mg/dL 190 - 450 CBC and Differential 07/22/2016/[employer] Import Abs Basophil 0.02 10*3/uL 0 - 0.2 Abs Eosinophil 0.14 10*3/uL 0 - 0.5 Abs Lymphocyte 1.29 10*3/uL 1.2 - 4.0 Abs Monocyte 0.38 10*3/uL 0 - 0.8 Abs Neutrophil 3.01 10*3/uL 1.8 - 7.0 Basophil 0 % 0 - 2 Differential Type Automated Diff Eosinophil 3 % 0 - 5 Hematocrit 40.1 % Low 41 - 53 Hemoglobin 13.9 g/dL 13.5 - 18 Lymphocyte 27 % 13 - 52 Mean Cell Hemoglobin 31.3 pg 27 - 33 Mean Cell Hgb Conc 34.6 g/dL 32.0 - 36.0 Mean Cell Volume 90.4 fL 80 - 96 Monocyte 8 % 0 - 11 Neutrophil 62 % 33 - 73 Nucleated Red Blood Cells 0 /100{WBCs} 0 - 0 Platelet Count 243 10*3/uL 150 - 400 Red Blood Cell 4.43 10*6/uL Low 4.6 - 6.1 Red Cell Dist Width 12.5 % 11.5 - 14.5 White Blood Cell 4.8 10*3/uL 4 - 10 Verifynow Aspirin 07/22/2016N/[employer] Import VerifyNow Aspirin 569 Aru High <550 Type and Screen 07/22/2016/[employer] Import Abo/RH(D) O Pos Gel Antibody Screen Neg Urinalysis with 07/22/2016 [facility] Import Bilirubin Negative Negative microscopic Clarity Clear Color Colorless Glucose Ua Negative Negative mg/dL Hemoglobin, Urine 1+ Abnormal Negative Ketone Urine Negative Negative mg/dL Leukocyte Esterase Negative Negative Stacy/uL Nitrite Negative Negative PH Urine 7.0 1 5.0 - 8.0 RBC <1 0 - 3 /HPF Specific [place] 1.011 1 1.003 - 1.030 Total Protein Negative <10 mg/dL WBC 0 /HPF 0 - 5 Basic Metabolic Panel 07/22/2016 N2N/[employer] Import Anion Gap 12 mmol/L 8 - 15 BUN/Cre Ratio 16 1 Bicarbonate 26 mmol/L 22 - 29 Blood Urea Nitrogen 11 mg/dL 8 - 23 Calcium 9.7 mg/dL 8.8 - 10.2 Chloride 103 mmol/L 96 - 108 Creatinine 0.7 mg/dL 0.5 - 1.2 GFR 2008 CKD-Epi >90 >60 mL/min/1.73m2 GFR Non 2008 CDK-Epi >90 >60 mL/min/1.73m2 Glucose 97 mg/dL 65 - 110 Osmolality, Eloy 291 mosm/kg 275 - 300 Potassium 4.3 mmol/L 3.3 - 5.1 Sodium 141 mmol/L 133 - 145 Lipid 07/12/2016 [facility] Cholesterol 136 mg/dL 50-199 44 Triglycerides 80 mg/dL 30-200 HDL 53 mg/dL 29-71 45 Chol/ HDL Ratio 2.6 ratio Low 4.0-6.7 VLDL 16 mg/dL 2-29 LDL (Calc) 67 mg/dL 20-99 46 Comprehensive Metabolic (CMP) 07/12/2016 [facility] Sodium 139 mmol/L 135- 146 47 Potassium 4.1 mmol/L 3.5-5.2 Chloride# 105 mmol/L 97-110 48 Carbon Dioxide 25 mmol/L 24-34 Glucose 96 mg/dL 70-105 BUN 12 mg/dL 6-26 Creatinine 0.9 mg/dL 0.5-1.4 Calcium 9.4 mg/dL 8.5-10.2 Total Protein 6.8 g/dL 6.0-8.0 Albumin 4.3 g/dL 3.6-4.9 Globulin 2.5 g/dL 2.0-3.5 A/G Ratio 1.7 Ratio 1.0-2.2 Total Bilirubin 0.8 mg/dL 0.1-1.3 Alkaline Phosphatase 66 U/L 24-140 Alt 29 U/L 3-42 Ast 21 U/L 8-42 Krysta Egfr >60 >60 49 Non Krysta Egfr >60 >60 50 Anion Gap 13 mmol/L 7-16 51 Laboratory test finding 07/12/2016 [facility] 77 U/L 12-199 CBC With Auto Diff 07/12/2016 [facility] WBC 5.8 K/uL 4.1-11.0 RBC 4.58 M/uL Low 4.60-6.10 Hemoglobin 14.4 gm/dL 13.5-18.0 Hematocrit 42.4 % 41.0-53.0 MCV 92.6 fL 80.0-97.0 MCH 31.5 pg 27.0-32.0 MCHC 34.0 g/dL 32.0-36.0 RDW 12.4 % 11.5-14.5 PLT Count 274 K/ul 140-400 Neutrophil 59.0 % 35.0-75.0 Lymphocyte 29.9 % 16.0-52.0 Monocyte 8.0 % 2.0-10.0 Eosinophil 2.5 % 0.0-5.0 Basophil 0.6 % 0.0-4.0 Abs Neutrophils 3.4 K/uL 2.1-8.0 Abs Lymphocytes 1.7 K/uL 0.8-5.5 Abs Monocytes 0.5 K/uL 0.1-1.0 Abs Eosinophils 0.1 K/uL 0.0-0.5 Abs Basophils 0.0 K/uL 0.0-0.3 Ua RFX Micro & 06/12/2016 [facility] Urine Color YELLOW Yellow 52 Culture II (315)- - Urine Clarity CLEAR Clear Urine Glucose - Dipstick NEGATIVE mg/dL Negative Urine Bilirubin - Dipstick NEGATIVE Negative Urine Ketone NEGATIVE mg/dL Negative Urine Specific [place] 1.010 N 1.010-1.030 Urine Blood NEGATIVE Negative Urine PH 6.5 N 6.5-7.5 Urine Protein - Dipstick NEGATIVE mg/dL Negative Urine Urobilinogen - Dipstick 0.2 E.U./dL N 0.2-1.0 Urine Nitrite - Dipstick NEGATIVE Negative Urine Leuk Esterase NEGATIVE Negative Source: URINE, CLEAN CAT <SEE NOTE> 53 CBS W/Automated Diff 06/12/2016 [facility] White Blood 4.4 K/uL N 3.4-10.5 (315)- - Count Red Blood Count 4.46 M/uL N 4.20-5.80 Hemoglobin 14.5 gm/dL N 12.8-17.0 Hematocrit 42.1 % N 38.0-48.0 Mean Cell Volume 94.4 fl N 80.0-96.0 Mean Corpuscular HGB 32.5 pg N 27.0-33.0 Mean Corpuscular HGB Conc 34.4 g/dL N 31.7-36.0 Platelet Count 239 K/uL N 150-400 Red Cell Distri Width SD 44.2 fl N 36-51 Red Cell Distri Width %CV 13.1 % N 11.6-15.8 Mean Platelet Volume 9.9 fL N 6.6-10.6 Neut% 55.2 % N 33.0-73.0 Lymph % 33.0 % N 20.0-42.0 [place] % 8.4 % N 0.0-10.0 Eo% 3.2 % N 0.0-6.6 Bas% 0.2 % N 0.0-1.1 Neut# 2.42 K/uL N 1.8-7.0 Lymph # 1.45 K/uL N 1.0-4.0 [place] # 0.37 K/uL N 0.0-0.8 Eos # 0.14 K/uL N 0.0-0.5 Baso # 0.01 K/uL N 0.0-0.1 Protime 06/12/2016 [facility] Protime 13.8 seconds N 12.0-14.4 (315)- - Inr 1.1 N 0.9-1.1 54 Laboratory test 06/12/2016 [facility] Act Partial 31.1 seconds N 23.4-35.0 55 finding (315)- - Thrombo Time Comprehensive 06/12/2016 [facility] Glucose 88 mg/dL N 74-106 Metabolic Panel (315)- - BUN 9 mg/dL N 7-18 Creatinine 0.7 mg/dL N 0.6-1.3 Glom Filtration Rate, Estimate >60 mL/min >60 If >60 mL/min >60 56 BUN/Creat 12.8 ratio Sodium 142 mmol/L N 136-145 Potassium 3.7 mmol/L N 3.5-5.1 Chloride 109 mmol/L High 98-107 Carbon Dioxide 26 mmol/L N 21-32 Anion Gap 7 mEq/L Low 8-16 Calcium 8.3 mg/dL Low 8.5-10.1 Total Protein 7.1 g/dL N 6.4-8.2 Albumin 3.9 g/dL N 3.4-5.0 Globulin 3.2 g/dL N 1.9-4.3 Alb/Glob 1.2 ratio Bilirubin,Total 0.4 mg/dL N 0.2-1.0 Sgot/Ast 25 U/L N 15-37 SGPT/Alt 23 U/L N 12-78 Alkaline Phosphatase 70 U/L N 45-117 Laboratory test finding 06/12/2016 [facility] CK 118 U/L N 39-308 (315)- - Troponin-I < 0.015 ng/mL 57 Laboratory test 06/01/2016 [facility] Prostate 0.90 ng/ mL < 4.0 58, 59 finding (315)- - Specific Antigen Testosterone,Ser 06/01/2016 [facility] Testosterone,S 640 ng/dL [id number] um (315)- - chip Comment (SEE NOTE) 60 Lipid Treatment 05/05/2015 [facility] Cholesterol 143 mg/dL 50-199 Triglycerides 63 mg/dL 30-200 HDL 56 mg/dL 29-71 61 Chol/ HDL Ratio 2.6 ratio Low 4.0-6.7 VLDL 13 mg/dL 2-29 LDL (Calc) 74 mg/dL 20-99 62 Alt 16 U/L 3-42 Ast 17 U/L 8-42 Laboratory test 05/05/2015 [facility] CPK 66 U/L 12-199 finding Laboratory test 04/13/2015 [facility] Polyp Colon hyperplast poly 63 finding (315)- - And/Or Rectum Lipid 04/07/2015 [facility] Cholesterol 188 mg/dL 50-199 Triglycerides 46 mg/dL 30-200 HDL 56 mg/dL 29-71 64 Chol/ HDL Ratio 3.4 ratio Low 4.0-6.7 VLDL 9 mg/dL 2-29 LDL (Calc) 123 mg/dL High 20-99 65 CBC With Auto Diff 04/07/2015 [facility] WBC 4.8 K/uL 4.1-11.0 RBC 4.67 M/uL 4.60-6.10 Hemoglobin 14.9 gm/dL 13.5-18.0 Hematocrit 44.5 % 41.0-53.0 MCV 95.2 fL 80.0-97.0 MCH 31.8 pg 27.0-32.0 MCHC 33.4 g/dL 32.0-36.0 RDW 13.2 % 11.5-14.5 PLT Count 230 K/ul 140-400 Neutrophil 53.7 % 35.0-75.0 Lymphocyte 32.6 % 16.0-52.0 Monocyte 9.3 % 2.0-10.0 Eosinophil 3.2 % 0.0-5.0 Basophil 1.2 % 0.0-4.0 Abs Neutrophils 2.5 K/uL 2.1-8.0 Abs Lymphocytes 1.6 K/uL 0.8-5.5 Abmon 0.4 K/uL 0.1-1.0 Abs Eosinophils 0.2 K/uL 0.0-0.5 Abs Basophils 0.1 K/uL 0.0-0.3 Comprehensive Metabolic (CMP) 04/07/2015 [facility] Sodium 138 mmol/L 134- 142 Potassium 4.0 mmol/L 3.5-5.2 Chloride 106 mmol/L 97-109 Carbon Dioxide 28 mmol/L 24-34 Glucose 93 mg/dL 70-105 BUN 13 mg/dL 6-26 Creatinine 0.7 mg/dL 0.5-1.4 Calcium 9.2 mg/dL 8.5-10.2 Total Protein 7.0 g/dL 6.0-8.0 Albumin 4.4 g/dL 3.6-4.9 Globulin 2.6 g/dL 2.0-3.5 A/G Ratio 1.7 Ratio 1.0-2.2 Total Bilirubin 0.5 mg/dL 0.1-1.3 Alkaline Phosphatase 51 U/L 24-140 Alt 14 U/L 3-42 Ast 16 U/L 8-42 Anion Gap 8 mmol/L 6-14 Krysta Egfr >60 >60 66 Non Krysta Egfr >60 >60 67 Laboratory test 04/07/2015 [facility] Vit D,25 25 ng/mL Low 31-100 finding Hydroxy Laboratory test 07/03/2012 [facility] Import Alt 15.0 U/L Low 21.0-72.0 finding Ast 18.0 U/L 17.0-59.0 CK 89 U/L 26-190 Vitamin D 39.6 ng/mL 30.0-100.0 Lipid Panel 07/03/2012 N2N/CCD Import Chol/HDL Ratio 4.8 ratio Cholesterol 179.0 mg/dL 50.0-199.0 HDL 37.0 mg/dL 29.0-67.0 LDL, Calculated 125.2 mg/dL 20.0-129.0 Triglycerides 84.0 mg/dL 30.0-249.0 vLDL 16.8 ng/dL Laboratory test finding 02/21/2012 N2N/CCD Import Alt 26.0 U/L 21.0- 72.0 Ast 22.0 U/L 17.0-59.0 Vitamin D 42.4 ng/mL 30.0-100.0 Lipid Panel 02/21/2012 [facility] Import Chol/HDL Ratio 3.9 ratio Cholesterol 141.0 mg/dL 50.0-199.0 HDL 36.0 mg/dL 29.0-67.0 LDL, Calculated 91.0 mg/dL 20.0-129.0 Triglycerides 70.0 mg/dL 30.0-249.0 vLDL 14.0 ng/dL Laboratory test 02/21/2012 [facility] Import CK 113 U/L 26-190 finding Laboratory test 01/17/2012 [facility] Import Vitamin 25.1 ng/mL Low 30.0- 100.0 68 finding D,25-Hydroxy Laboratory test 03/23/2010 [facility] Import A/G Ratio 1.4 1.0-2.2 69 finding Albumin 4.3 g/dL 3.5-5.0 Alkaline Phosphatase 65 U/L 30-126 Alt 19 U/L Low 21-72 Ast 24 U/L 17-59 BUN 17 mg/dL 9-21 BUN/CR Ratio 20.9 Ratio High 12-20 Calcium 9.5 mg/dL 8.7-10.5 Carbon Dioxide 28 mmol/L 22-30 Chloride 104 mmol/L 98-107 Creatinine, Serum 0.8 mg/dL 0.8-1.5 Globulin 3.1 g/dL 2.7-4.3 Glucose 81 mg/dL 75-110 Microalbumin,Urine < 6.0 mg/L 0.0-15.0 Microalbumin/Creatinine Ratio See Note 70 Potassium 4.2 mmol/L 3.6-5.0 Sodium 142 mmol/L 137-145 Total Bilirubin 0.5 mg/dL 0.2-1.3 Total Protein 7.4 g/dL 6.3-8.2 Urine Creatinine Conc 168 mg/dL Laboratory test 03/23/2010 [employer] Import Vitamin 19.2 ng/mL Low 32.0- 100.0 71 finding D,25-Hydroxy Lipid Panel 03/23/2010 [facility] Import Chol/HDL Ratio 3.8 72 Cholesterol 189 mg/dL 50-199 HDL Cholesterol 49 mg/dL 29-67 LDL 107 mg/dL 20-129 Triglycerides 163 mg/dL 30-249 VLDL Cholesterol 33 mg/dL Laboratory test 07/07/2009 N2N/CCD Import Polyp Colon adenomatousplp 73 finding And/Or Rectum Lipid Panel 03/13/2009 N2N/CCD Import Chol/HDL Ratio 3.2 74, 75 Cholesterol 203 mg/dL High 50-199 HDL Cholesterol 62 mg/dL 29-67 LDL 126 mg/dL 20-129 Triglycerides 74 mg/dL 30-249 VLDL Cholesterol 15 mg/dL Laboratory test 03/13/2009 N2N/CCD Import Microalbumin,Urine < 6.0 mg/L 0.0-15.0 76 finding Microalbumin/Creatinine Ratio See Note 77 Urine Creatinine Conc 96 mg/dL 78 A/G Ratio 1.6 1.0-2.2 Absolute Basophils 0.039 K/ul 0.0-0.3 Absolute Eosinophils 0.140 K/ul 0.0-0.5 Absolute Lymphocytes 1.87 K/ul 0.8-4.8 Absolute Monocytes 0.517 K/ul 0.1-1.0 Absolute Neutrophils 3.46 K/ul 2.05-7.63 Albumin 4.8 g/dL 3.5-5.0 Alkaline Phosphatase 78 U/L 30-126 Alt 25 U/L 21-72 Ast 26 U/L 17-59 BUN 11 mg/dL 9-21 BUN/CR Ratio 14.9 Ratio 12-20 Basophil 0.6 % 0-2 C-Reactive Protein,Cardiac 1.01 mg/L 0.00-3.00 79 Calcium 10.0 mg/dL 8.7-10.5 Carbon Dioxide 28 mmol/L 22-30 Chloride 102 mmol/L 98-107 Creatinine, Serum 0.8 mg/dL 0.8-1.5 Eosinophil 2.3 % 0-4 Globulin 2.9 g/dL 2.7-4.3 Glucose 90 mg/dL 75-110 Hematocrit 43.9 % 37.0-51.0 Hemoglobin 15.0 GM/dl 12.0-16.0 Lymphocytes 31.0 % 20-44 MCH 31.4 pg 26.0-32.0 MCHC 34.1 g/dL 31.0-36.0 MCV 92 FL 80-97 Monocytes 8.6 % 2-10.0 Neutrophils 57.4 % 50-70 Platelet Count 322 K/ul 140-440 Potassium 4.2 mmol/L 3.6-5.0 RBC 4.76 M/ul 4.2-6.3 RDW 11.7 % 11.5-14.5 Sodium 141 mmol/L 137-145 TSH 1.149 uIU/ml 0.50-6.00 Total Bilirubin 0.5 mg/dL 0.2-1.3 Total Protein 7.7 g/dL 6.3-8.2 WBC 6.0 K/ul 4.1-10.9 Laboratory test finding 04/02/2005 N2N/CCD Import PSA - Prostate Specific 1.03 Antige Lipid Panel 04/01/2005 N2N/CCD Import Cholesterol Total 200 Cholesterol/HDL Ratio 3.64 High Density Lipoprotein 55 Low Density Lipoprotein 123 Triglycerides 113 1 E78.2 E55.9 I67.9 Q21.1 2 Reference Guidelines*: Desirable: ........... < 200 mg/dL Borderline High: ..... 200-239 mg/dL High: ................ >=240 mg/dL * The National Cholesterol Education Program (NCEP) 3 Reference Guidelines*: Normal: ............. < 150 mg/dL Borderline High: .... 150-199 mg/dL High: ............... 200-499 mg/dL Very High: .......... > 500 mg/dL * Source: National Cholesterol Education Program (NCEP) 4 Reference Guidelines*: Low HDL: ..... < 40 mg/dL Normal: ..... 40-60 mg/dL Desirable: ... > 60 mg/dL *The National Cholesterol Education Program(NCEP) 5 Reference Guidelines*: Optimal:........... <100 mg/dL Near Optimal....... 100-129 mg/dL Borderline High.... 130-159 mg/dL High............... 160-189 mg/dL Very High.......... >=190 mg/dL * Source: National Cholesterol Education Program (NCEP) 6 Note: Persistent reduction for 3 months or more in an eGFR <60 mL/min/1.73 m2 defines CKD. Patients with eGFR values >/=60 mL/min/1.73 m2 may also have CKD if evidence of persistent proteinuria is present. The original MDRD equation for estimated GFR is not valid for patients less than 18 years of age. Additional information may be found at [email or web address]. 7 E78.2,I67.9 8 Note: Persistent reduction for 3 months or more in an eGFR <60 mL/min/1.73 m2 defines CKD. Patients with eGFR values >/=60 mL/min/1.73 m2 may also have CKD if evidence of persistent proteinuria is present. The original MDRD equation for estimated GFR is not valid for patients less than 18 years of age. Additional information may be found at [email or web address]. 9 Reference Guidelines*: Desirable: ........... < 200 mg/dL Borderline High: ..... 200-239 mg/dL High: ................ >=240 mg/dL * The National Cholesterol Education Program (NCEP) 10 Reference Guidelines*: Normal: ............. < 150 mg/dL Borderline High: .... 150-199 mg/dL High: ............... 200-499 mg/dL Very High: .......... > 500 mg/dL * Source: National Cholesterol Education Program (NCEP) 11 Reference Guidelines*: Low HDL: ..... < 40 mg/dL Normal: ..... 40-60 mg/dL Desirable: ... > 60 mg/dL *The National Cholesterol Education Program(NCEP) 12 Reference Guidelines*: Optimal:........... <100 mg/dL Near Optimal....... 100-129 mg/dL Borderline High.... 130-159 mg/dL High............... 160-189 mg/dL Very High.......... >=190 mg/dL * Source: National Cholesterol Education Program (NCEP) 13 E78.2 I63.30 Z79.01 14 Note: Persistent reduction for 3 months or more in an eGFR <60 mL/min/1.73 m2 defines CKD. Patients with eGFR values >/=60 mL/min/1.73 m2 may also have CKD if evidence of persistent proteinuria is present. The original MDRD equation for estimated GFR is not valid for patients less than 18 years of age. Additional information may be found at [email or web address]. 15 Reference Guidelines*: Desirable: ........... < 200 mg/dL Borderline High: ..... 200-239 mg/dL High: ................ >=240 mg/dL * The National Cholesterol Education Program (NCEP) 16 Reference Guidelines*: Normal: ............. < 150 mg/dL Borderline High: .... 150-199 mg/dL High: ............... 200-499 mg/dL Very High: .......... > 500 mg/dL * Source: National Cholesterol Education Program (NCEP) 17 Reference Guidelines*: Low HDL: ..... < 40 mg/dL Normal: ..... 40-60 mg/dL Desirable: ... > 60 mg/dL *The National Cholesterol Education Program(NCEP) 18 Reference Guidelines*: Optimal:........... <100 mg/dL Near Optimal....... 100-129 mg/dL Borderline High.... 130-159 mg/dL High............... 160-189 mg/dL Very High.......... >=190 mg/dL * Source: National Cholesterol Education Program (NCEP) 19 RT SIDED WEAKNESS 20 THERAPEUTIC INR RANGE: 2.0 - 3.0 DVT, Pulmonary embolus, prophylaxis against venous thrombosis or systemic embolization in high risk patients. 2.5 - 3.5 Mechanical heart valves 21 Is patient on anticoagulants? Coumadin 22 Note: Persistent reduction for 3 months or more in an eGFR <60 mL/min/1.73 m2 defines CKD. Patients with eGFR values >/=60 mL/min/1.73 m2 may also have CKD if evidence of persistent proteinuria is present. The original MDRD equation for estimated GFR is not valid for patients less than 18 years of age. Additional information may be found at [email or web address]. 23 0.0 - 0.045 ng/mL: Normal 0.046 - 0.5 ng/mL: Suggestive 0.6 - 1.5 ng/mL: Consistent 24 before visit 01/2017 Fastin hours before visit 01/2017 Fastin hours Fastin hours Fastin hours Fastin hours Fastin hours Fastin hours before visit 01/2017 Fastin hours 25 Updated reference range on new analyzer 26 Updated reference range on new analyzer 27 Concerning GFR Guidelines for Americans: Normal function or mild renal disease, if clinically at risk: >/=60 mL/min Moderately decreased: 30-59 Severely decreased: 15-29 Renal failure: <15 28 Concerning GFR Guidelines: Normal function or mild renal disease, if clinically at risk: >/=60 mL/min Moderately decreased: 30-59 Severely decreased: 15-29 Renal failure: <15 Glomerular Filtration Rate (GFR) is estimated based on the MDRD equation, which assumes a steady state for creatinine as recommended by the National Kidney Disease Education Program in conjunction with the National Institutes of Health and the National Kidney Foundation. Clinical conditions in which it may be necessary to measure GFR by using clearance methods include extremes of age and body size, severe malnutrition or obesity, diseases of skeletal muscle, paraplegia or quadriplegia, vegetarian diet, rapidly changing kidney function, and calculation of the dose of potentially toxic drugs that are excreted by the kidneys. 29 Updated reference range on new analyzer 30 Per NCEP ATP III Guidelines: Results lower than 40 mg/dL are suggestive of increased risk for coronary artery disease. Results > or=to 60 mg/dL are considered a negative risk factor. 31 Per NCEP ATP III Guidelines: Normal Population <130 Patients with medical conditions: CHD/DM Optimal: <100 Borderline high: 130-159 High: 160-189 Very high: >189 32 S/CO Ratio >/=1.0 is REACTIVE. S/CO <5.0 is Low Reactive. S/CO >/= 5.0 is High Reactive. Effective Oct 11, 2016 all anti-HCV reactive samples are sent for quantitative PCR confirmation. 33 E78.2 34 Reference Guidelines*: Desirable: ........... < 200 mg/dL Borderline High: ..... 200-239 mg/dL High: ................ >=240 mg/dL * The National Cholesterol Education Program (NCEP) 35 Reference Guidelines*: Normal: ............. < 150 mg/dL Borderline High: .... 150-199 mg/dL High: ............... 200-499 mg/dL Very High: .......... > 500 mg/dL * Source: National Cholesterol Education Program (NCEP) 36 Reference Guidelines*: Low HDL: ..... < 40 mg/dL Normal: ..... 40-60 mg/dL Desirable: ... > 60 mg/dL *The National Cholesterol Education Program(NCEP) 37 Reference Guidelines*: Optimal:........... <100 mg/dL Near Optimal....... 100-129 mg/dL Borderline High.... 130-159 mg/dL High............... 160-189 mg/dL Very High.......... >=190 mg/dL * Source: National Cholesterol Education Program (NCEP) 38 Note: Persistent reduction for 3 months or more in an eGFR <60 mL/min/1.73 m2 defines CKD. Patients with eGFR values >/=60 mL/min/1.73 m2 may also have CKD if evidence of persistent proteinuria is present. The original MDRD equation for estimated GFR is not valid for patients less than 18 years of age. Additional information may be found at www.[email or web address]. 39 STROKE? 40 0.0 - 0.045 ng/mL: Normal 0.046 - 0.5 ng/mL: Suggestive 0.6 - 1.5 ng/mL: Consistent 41 Note: Persistent reduction for 3 months or more in an eGFR <60 mL/min/1.73 m2 defines CKD. Patients with eGFR values >/=60 mL/min/1.73 m2 may also have CKD if evidence of persistent proteinuria is present. The original MDRD equation for estimated GFR is not valid for patients less than 18 years of age. Additional information may be found at [email or web address]. 42 Is patient on anticoagulants? None 43 THERAPEUTIC INR RANGE: 2.0 - 3.0 DVT, Pulmonary embolus, prophylaxis against venous thrombosis or systemic embolization in high risk patients. 2.5 - 3.5 Mechanical heart valves 44 before siit 07/2016 45 Per NCEP ATP III Guidelines: Results lower than 40 mg/dL are suggestive of increased risk for coronary artery disease. Results > or=to 60 mg/dL are considered a negative risk factor. 46 Per NCEP ATP III Guidelines: Normal Population <130 Patients with medical conditions: CHD/DM Optimal: <100 Borderline high: 130-159 High: 160-189 Very high: >189 47 Updated reference range on new analyzer 48 Updated reference range on new analyzer 49 Concerning GFR Guidelines for Americans: Normal function or mild renal disease, if clinically at risk: >/=60 mL/min Moderately decreased: 30-59 Severely decreased: 15-29 Renal failure: <15 50 Concerning GFR Guidelines: Normal function or mild renal disease, if clinically at risk: >/=60 mL/min Moderately decreased: 30-59 Severely decreased: 15-29 Renal failure: <15 Glomerular Filtration Rate (GFR) is estimated based on the MDRD equation, which assumes a steady state for creatinine as recommended by the National Kidney Disease Education Program in conjunction with the National Institutes of Health and the [employer] Kid[employer]. Clinical conditions in which it may be necessary to measure GFR by using clearance methods include extremes of age and body size, severe malnutrition or obesity, diseases of skeletal muscle, paraplegia or quadriplegia, vegetarian diet, rapidly changing kidney function, and calculation of the dose of potentially toxic drugs that are excreted by the kidneys. 51 Updated reference range on new analyzer 52 WEAKNESS IN LEGS, HANDS, LEGS NUMB 53 URINE, CLEAN CATCH 54 THERAPEUTIC INR RANGE: 2.0 - 3.0 DVT, Pulmonary embolus, prophylaxis against venous thrombosis or systemic embolization in high risk patients. 2.5 - 3.5 Mechanical heart valves 55 Is patient on anticoagulants? Coumadin 56 Note: Persistent reduction for 3 months or more in an eGFR <60 mL/min/1.73 m2 defines CKD. Patients with eGFR values >/=60 mL/min/1.73 m2 may also have CKD if evidence of persistent proteinuria is present. The original MDRD equation for estimated GFR is not valid for patients less than 18 years of age. Additional information may be found at www.kdoqi.org. 57 0.0 - 0.045 ng/mL: Normal 0.046 - 0.5 ng/mL: Suggestive 0.6 - 1.5 ng/mL: Consistent 58 C61 59 THIS ASSAY IS NOT INTENDED A CANCER SCREENING TEST The concentration of PSA in a given specimen, determined with assays from different manufacturers, can vary due to differences in assay methods and reagent specificity. Values obtained from different assay methods cannot be used interchangeably. Method: OnGreen Freeman Chemiluminescent immunoassay. 60 Adult male reference interval is based on a population of lean males up to 40 years old. 61 Per NCEP ATP III Guidelines: Results lower than 40 mg/dL are suggestive of increased risk for coronary artery disease. Results > or=to 60 mg/dL are considered a negative risk factor. 62 Per NCEP ATP III Guidelines: Normal Population <130 Patients with medical conditions: CHD/DM Optimal: <100 Borderline high: 130-159 High: 160-189 Very high: >189 63 OPERATION/PROCEDURE Colonoscopy DIAGNOSIS: PART 1: "COLON, SIGMOID, BIOPSY": - HYPERPLASTIC POLYP. PART 2: "TRANSVERSE, BIOPSY": - INFLAMED HYPERPLASTIC POLYP WITH SINGLE CRYPT ABSCESS. - SEE COMMENT. JUSTYNA/zaki 1046 INTERPRETATION COMMENT Findings in Part 2, may be localized and non-specific, although the presence of crypt abscess raises the possibility of chronic inflammatory bowel disease. Correlation with clinical and microscopic findings are suggested. GROSS Received in formalin in two containers properly labeled with the patient's name and accession number. Part one is designated, "SIGMOID POLYPS". The specimen consists of multiple pieces of turk, soft rubbery tissue measuring 0.5 x 0.3 x 0.3 cm. in aggregate. Submitted entirely, one cassette. Part two is designated, "TRANSVERSE COLON POLYP". The specimen consists of multiple pieces of turk, soft rubbery tissue measuring 0.5 x 0.2 x 0.2 cm. in aggregate. Submitted entirely, one cassette. CC/clf PRE OPERATIVE DIAGNOSIS Family history of colon cancer, history of polyp REVIEW CODE CODE: I Signed Electronically signed PABLITO HERNANDES MD [id number] 64 Per NCEP ATP III Guidelines: Results lower than 40 mg/dL are suggestive of increased risk for coronary artery disease. Results > or=to 60 mg/dL are considered a negative risk factor. 65 Per NCEP ATP III Guidelines: Normal Population <130 Patients with medical conditions: CHD/DM Optimal: <100 Borderline high: 130-159 High: 160-189 Very high: >189 66 Concerning GFR Guidelines for Americans: Normal function or mild renal disease, if clinically at risk: >/=60 mL/min Moderately decreased: 30-59 Severely decreased: 15-29 Renal failure: <15 67 Concerning GFR Guidelines: Normal function or mild renal disease, if clinically at risk: >/=60 mL/min Moderately decreased: 30-59 Severely decreased: 15-29 Renal failure: <15 Glomerular Filtration Rate (GFR) is estimated based on the MDRD equation, which assumes a steady state for creatinine as recommended by the National Kidney Disease Education Program in conjunction with the National Institutes of Health and the National Kidney Foundation. Clinical conditions in which it may be necessary to measure GFR by using clearance methods include extremes of age and body size, severe malnutrition or obesity, diseases of skeletal muscle, paraplegia or quadriplegia, vegetarian diet, rapidly changing kidney function, and calculation of the dose of potentially toxic drugs that are excreted by the kidneys. 68 Vitamin D deficiency has been defined by the [place] of Medicine and an Endocrine Society practice guideline as a level of serum 25-OH vitamin D less than 20 ng/mL (1,2). The Endocrine Society went on to further define vitamin D insufficiency as a level between 21 and 29 ng/mL (2). 1. IOM ([place] of Medicine). 2010. Dietary reference intakes for calcium and D. [place]: The National Academies Press. 2. Angel MF, Dolores GASPAR, Halie RIVERO, et al. Evaluation, treatment, and prevention of vitamin D deficiency: an Endocrine Society clinical practice guideline. JCEM. 2010; 96(7):1911-30. Performed at: [facility] [employer] [id number] Panel Raiser Operator: Lucia Vivas MD, Phone: [phone] 69 FASTING today, not fasting letter 70 Test not performed Valid ratio could not be calculated due to non-numeric result. 71 Recent studies consider the lower limit of 32.0 ng/mL to be a threshold for optimal health. Korey JACKSON. J Nutr. 2004;135(2):317-22. Performed at: [facility] [employer] [id number] Panel Raiser Operator: Moise Barreto MD, Phone: [phone] 72 Normal Range: Male: <4.98 Female: <4.45 73 OPERATION/PROCEDURE Colon. DIAGNOSIS: "ASCENDING COLON POLYP": ADENOMATOUS COLONIC MUCOSA, FRAGMENTED WITH TUBULAR ARCHITECTURE. GATO/pura 1220 GROSS "ASCENDING COLON POLYP". The specimen is received in an appropriately labeled container. This contains four rounded turk pink colored pieces of soft tissue measuring up to 0.3 cm.; filtered and submitted in toto within a single cassette. GATO/pura MICROSCOPIC Sections show colonic mucosa with tubular glands lined by columnar cells with elongated and hyperchromatic nuclei. PRE OPERATIVE DIAGNOSIS F/H colon ca. REVIEW CODE CODE: I ----- RAMO Sheppard MD 07/10/09 ----- 74 FASTING schedule fasting, letter 75 Normal Range: Male: <4.98 Female: <4.45 76 FASTING 77 Test not performed Valid ratio could not be calculated due to non-numeric result. 78 FASTING 79 Relative Risk for Future Cardiovascular Event Low <1.00 Average 1.00 - 3.00 High >3.00 Procedures Date Code Description Status 08/11/2017 62413 Brief Emotional/Behav Assessment W/ Scoring Doc Per Completed Standard Inst 04/13/2015 [id number] Colonoscopy Completed 02/20/2015 1 Balance Forward 10/18/92 Completed 03/23/2010 74786 Electrocardiogram Complete Completed 07/07/2009 03044 Colonoscopy Flexible Diagnostic Completed 03/20/2009 60459 ECHO Complete W/O Spectral Or Color Doppler Completed 03/20/2009 93331 ECHO Transthoracis 2D W Spectral Doppler Completed 03/13/2009 13254 Electrocardiogram Complete Completed 08/17/2003 39310 Electrocardiogram Interpretation & Report Only Completed Encounters Type Date Location Provider Dx Diagnosis Office Visit 02/11/2018 [facility] Reina Knutson, I67.9 Cerebrovascular disease, 8:45a unspecified E78.2 Mixed hyperlipidemia C61 Malignant neoplasm of prostate 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 Z86.73 Prsnl hx of TIA (TIA), and cereb infrc w/o resid deficits 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 I72.8 Aneurysm of other specified arteries N32.81 Overactive bladder N52.9 Male erectile dysfunction, unspecified F17.211 Nicotine dependence, cigarettes, in remission F10.288 Alcohol dependence with other alcohol-induced disorder Q21.2 Atrioventricular septal defect Z71.89 Other specified counseling Office Visit 08/11/2017 3:30p [facility] Reina Knutson MD M67.439 Ganglion, unspecified wrist Z86.73 Prsnl hx of TIA (TIA), and cereb infrc w/o resid deficits I67.9 Cerebrovascular disease, unspecified Z00.01 Encounter for general adult medical exam w abnormal findings C61 Malignant neoplasm of prostate F17.211 Nicotine dependence, cigarettes, in remission 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 N52.9 Male erectile dysfunction, unspecified D12.6 Benign neoplasm of colon, unspecified Z80.0 Family history of malignant neoplasm of digestive organs E78.2 Mixed hyperlipidemia N32.81 Overactive bladder Office Visit 03/18/2017 8:45a [facility] Reina Knutson MD I63.30 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 E78.2 Mixed hyperlipidemia Z79.01 custodial (current) use of anticoagulants F17.211 Nicotine dependence, cigarettes, in remission 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 Z13.89 Encounter for screening for other disorder Office Visit 12/16/2016 3:00p [facility] Reina Knutson MD I63.30 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 Z79.01 custodial (current) use of anticoagulants 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 E78.2 Mixed hyperlipidemia F17.211 Nicotine dependence, cigarettes, in remission C61 Malignant neoplasm of prostate I67.9 Cerebrovascular disease, unspecified 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 N32.81 Overactive bladder Z11.59 Encounter for screening for other viral diseases N52.9 Male erectile dysfunction, unspecified Office Visit 07/19/2016 2:30p [facility] Reina Knutson MD Z00.00 Encntr for general adult medical exam w/o abnormal findings I63.30 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 E78.2 Mixed hyperlipidemia F17.211 Nicotine dependence, cigarettes, in remission C61 Malignant neoplasm of prostate N52.9 Male erectile dysfunction, unspecified I67.9 Cerebrovascular disease, unspecified I69.398 Other sequelae of cerebral infarction 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 Z87.891 Personal history of nicotine dependence N32.81 Overactive bladder D12.6 Benign neoplasm of colon, unspecified Z80.0 Family history of malignant neoplasm of digestive organs Z68.23 Body mass index (BMI) 23.0-23.9, adult Office Visit 05/12/2015 10:45a [facility] Reina Knutson MD E78.2 Mixed hyperlipidemia F17.210 Nicotine dependence, cigarettes, uncomplicated Office Visit 04/14/2015 9:30a [facility] Reina Knutson MD F17.210 Nicotine dependence, cigarettes, uncomplicated E78.2 Mixed hyperlipidemia E55.9 Vitamin D deficiency, unspecified N32.81 Overactive bladder D12.6 Benign neoplasm of colon, unspecified Z80.0 Family history of malignant neoplasm of digestive organs Z00.00 Encntr for general adult medical exam w/o abnormal findings Z12.5 Encounter for screening for malignant neoplasm of prostate N52.9 Male erectile dysfunction, unspecified C61 Malignant neoplasm of prostate Office Visit 02/20/2015 2:45p [facility] Reina Knutson MD L03.116 Cellulitis of LEFT lower limb Z23 Encounter for immunization Office Visit 04/11/2014 9:30a [facility] Reina Knutson MD 272.2 Hyperlipidemia Mixed 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 211.3 Benign Neoplasm Colon V16.0 History Family Malignant Neoplasm Gastrointestinal Tract 305.1 Tobacco Use Disorder 268.9 Vitamin D Deficiency Unspec V70.0 Exam (Adult) General Medical Routine AT Health Care Facility V76.51 Special Screening For Malignant Neoplasms Colon V76.44 Screening For Malig Derrek Prostate V03.82 Streptococcus Pneumoniae Vaccination Spec Other Plan of Treatment Future Appointment(s):02/26/2019 9:15 am - Reina Knutson MD at [facility]2018 - Reina Knutson MDZ00.01 Encounter for general adult medical examination with abnormaComments:Well adult male.imms revieweddT done 02/2015 pneumovax 12/2011, due for [id number] on birthday [birth year]. Will boost [id number] in 1 yr shingrix recommended at drug storeflu vax recommended, obtain annual Recommend periodic ophtho examination for eye health. sees [facility] visionRecommend colon cancer screeningas discussedDiscussed prostate cancer care. Dr Ozuna Recommend periodic dental exam. Tick ho given healthy lifestyle recommendations Encouraged healthy diet with meats simply prepared, fresh fruits and veg when able also simply prepared, whole grains, 3 dairies per day non fat. with a meal with meat/fat/oil. Encouraged daily exercise 30 - 60 min daily, moderate to vigorous.Encouraged 3 qrts total fluid per day, with most being water, and more for sweaty exercise. [employer] 7-8 hours of sleep at night.Limit your alcohol to < 2 per day. Don't smoke or use tobacco. Following a healthy lifestyle willreduce your risk for cardiovascular disease, the leading cause of , as well as many other illnesses.Follow up:next visit in 170 - 180 days for oc15 rtn fu nonfasting labs 5 days prior ask about mcare, give rudsalp08 if not done ; order screening lung cancer ctI67.9 Cerebrovascular disease, unspecifiedNew Labs:CBC with Auto Diff-fcmg, Ordered: 09/07/18Comments:cerebral vascular disease--Continue to control risk factors for stroke with bp control and statin therapy, continues on Brilinta. CAll prn concerns or symptoms.E78.2 Mixed hyperlipidemiaNew Labs:CPK, Ordered: Comprehensive Met Panel-FCMG, Ordered: 09/07/18Direct LDL, Ordered: Comments:high cholpatient is high risk due to known stroke and coronary artery calcificiation on chesst ct scan continue ator 40mg, high dose treatmentcheck labs to followupmonitor for side effects of muscle aches or crampswe watch for liver effects with labsPlease call if you have any concerns.Aspirin 81mg daily ,he is taking Brilinta also For lifestyle, we also recommend: Low fat ( under 30gm per day), low chol diet ( under 300mg per day chol)focus on lean meat, nonfat 1% dairy, increased veg and fruit, whole grains weight lossexercise build to at least 30min per day. Reviewed signs and symptoms of cardiovascular disease.C61 Malignant neoplasm of prostateComments: prostate cancer [address] Bradford72.0 Aneurysm of carotid arteryNew Labs:Gamma gt-RL, Ordered: 09/07/18Comments:Aneurysm carotid artery, care with Dr Cheema, continue good bp control, statin therapy, no tobacco/ nicotine/vaping, and keep alcohol to under 1 per day.Z86.73 Personal history of transient ischemic attack (TIA), and cerComments:Personal history TIA without residual deficits. Continue anticoagRecommend good blood pressure control to reduce further risks. 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 Pt with good results from meds. Reviewed side effects. Call prn concerns, continue meds. Care with Dr López17.298 Nicotine dependence, other tobacco product, with other nicotComments:reviewed with pt smoking cessation assistance options including/not limited to zyban, chantix, nina patches,, nina lozenges/ gum. reviewed se of meds and briefly how they workdiscussed tapering technizuessuggest reducing dose of nicotine in vapeadvised risks for cancer, heart attack, stroke with continued smokingdiscussed the economic impactpt not ready to quit, urged to consider tapering, using lessernicotine fojtgcN99.288 Alcohol dependence with other alcohol-induced disorderComments:alcohol usecautioned risks to worsen cardiac conditions, aneurysm and to interact with meds causing gi bleedingrecommend decrease to under 1 per day.if struggling, there are meds and counselling we bishop to help with this.campral, naltrexone/ vivitrol, antabuse discussed.Q21.2 Atrioventricular septal defectComments: patent foramen ovale treated [facility] 02/2018. co managed care with DR West80.0 Family history of malignant neoplasm of digestive organsComments:family history colon cancerAdvised pt that due to increased risk in family members with colon cancerthat pt should undergo colonoscopy to look for small easily treatable cancer or polyps. Pt has donescope, next should be 5 years after the last scope. Should receive an annual rectal exam and may consider annual stool cards to assist with early detection of polyps or cancer.D12.6 Benign neoplasm of colon, unspecifiedComments:Pt with h/o colon polyps, last colonoscopy03/2015Next colonoscopy due 5 years.Please call for blood in stool, changes in bowel habits, any concerns. Colonoscopy can still miss polyps.I25.10 Atherosclerotic heart disease of [place] coronary artery withComments:New finding of calcified coronary arteries on ct scan 02/2018. Ischemic cardiac disease, stable without angina--Patient appears stable without symptoms. Advised to continue meds to control risk factors, statin therapy and BP control. Encouraged continued healthy diet modified in fat and cholesterol with regular daily exercise. Call for symptoms of chest pressure, pain tightness, at rest or with exertion, or increasing SOB/developing exercise intolerance. Call for concerns.B36.0 Pityriasis versicolorNew Medication: Ketoconazole 2 % - apply shampoo to all of body rash, leave on for 5 min and then rinse off. repeat treatment in 1 week.Comments:Tinea Versicoloradvised pt history and exam is consistent with tinea versicolor, a fungal infection.recommend treatment with meds as notedpt may self treat, tends to reoccur. Remember, we treat and the skin pigment changes will persist for a bit , usually resolving with summer sun exposure. This rashtends to reoccur in the spring so treat when you first see symptoms.treat with ketoconazole 2% shampoo, lather onto skin with wide margin, leave on 5min , rinse off. consider oral or topical benedrylfor itching
[2018-09-26 09:15] VITALS: BP 147/85
--- NOTE | 2018-09-26 09:22 | UC ---
Skin Complaint HPI - HPI Summary HPI Summary: 63-year-old male who has a rash on the top of his head which she states is been for about 2 months but his states is been for over a year. He describes as itchy and sometimes weepy. He denies any insect bite or injury to his head. He's has no other symptoms of illness. - History of Current Complaint Chief Complaint: UCSkin Time Seen by Provider: 09/26/18 09:22 Stated Complaint: SKIN CONCERN, HEAD Hx Obtained From: Patient Onset/Duration: Gradual Onset Skin Exposure Onset/Duration: Worse Since: - Area has been there for about one year. Timing: Constant Onset Severity: Mild Current Severity: Mild Pain Intensity: 4 Location: Other - Top of head Character: Pruritus, Redness Aggravating Factor(s): Nothing Alleviating Factor(s): Nothing Associated Signs & Symptoms: Positive: Drainage - Patient states he's had some clear non-purulent, pjp-qkpd-euebuonx drainage at times. - Allergy/Home Medications Allergies/Adverse Reactions: Allergies Allergy/AdvReac Type Severity Reaction Status Date / Time No Known Allergies Allergy Verified 09/26/18 09:05 Home Medications: Home Medications Aspirin 81 mg CHEW TAB* [Aspirin Low Dose TAB*] 81 mg PO DAILY 09/26/18 [ History Confirmed 09/26/18] PMH/Surg Hx/FS Hx/Imm Hx Previously Healthy: Yes Cancer History: Prostate Cancer - Surgical History Surgical History: Yes Surgery Procedure, Year, and Place: Appy 2004, left eye socket and zygomatic fxs with metal plates 1996. LEFT GREAT TOE AMPUTATION. T&A. amp left great toe due to crushing injury, heart surgery, 2018 - Family History Known Family History: Positive: None, Unknown, Other - no blood clots Negative: Hypertension, Diabetes - Social History Alcohol Use: Daily Alcohol Amount: 3 beers/day Substance Use Type: None Smoking Status (MU): Former Smoker Type: eCigarettmeron Review of Systems All Other Systems Reviewed And Are Negative: Yes Skin: Positive: Rash - Itchy sometimes clear draining rash on top of head. Is Patient Immunocompromised?: No Physical Exam Triage Information Reviewed: Yes Appearance: Well-Appearing, No Pain Distress, Well-Nourished Vital Signs: Initial Vital Signs Temp 97.6 F 09/26/18 09:07 Pulse 58 09/26/18 09:07 Resp 17 09/26/18 09:07 BP 147/85 09/26/18 09:07 Pulse Ox 97 09/26/18 09:07 Vital Signs Reviewed: Yes Skin: Positive: Rashes - The area of concern is the top of the patient's head it 's about 1.0 cm in diameter flat reddened, no vesicles, no drainage right now. Proximal to that is one very small reddened area approximately 2 or 3 mm in diameter and not raised. Course/Dx - Course Course Of Treatment: Patient is comfortable here. 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 I advised him to go without the had as much as possible and let the area air dry. He can apply hydrocortisone cream. It seems like this might be just some sort of contact dermatitis however it has been there more than a year so I stressed the importance of follow-up with a sandblaster paint sprayer. They are going to follow up with a sandblaster paint sprayer in [place] to an office where he has gone before. - Diagnoses Provider Diagnosis: Rash and nonspecific skin eruption Discharge - Sign-Out/Discharge Documenting (check all that apply): Patient Departure All imaging exams completed and their final reports reviewed: No Studies - Discharge Plan Condition: Good Disposition: HOME Referrals: Reina Knutson MD [Primary Care Provider] - Additional Instructions: Apply hydrocortisone cream to the area twice a day. Call your sandblaster paint sprayer and make an appointment to be seen. Do not wear your hat because this will cause moisture to the area possible infection. - Billing Disposition and Condition Condition: GOOD Disposition: Home
== END 2018-09-26 09:43 | disposition home or self-care (01) ==
LOC: UCCORT 08:55
DX: R21 Rash and other nonspecific skin eruption (principal); Z87.891 Personal history of nicotine dependence
CPT/HCPCS: 99211; G0463